=== PATIENT | male | born 1970 | race Hispanic/Latino ===

== ENCOUNTER → 2018-09-14 | Day surgery (SDC) | payer OTHER ==
[2018-09-13 09:53] LABS: BASOPHILS # (AUTO) 0.1 (0.0-0.1); BASOPHILS % 0.7 % (0.0-1.0); EOSINOPHILS # (AUTO) 0.2 (0.0-0.4); EOSINOPHILS % 2.2 % (0.0-6.0); HEMATOCRIT 42.5 % (38.2-49.6); HEMOGLOBIN 13.6 g/dL (14.0-18.0); LYMPHOCYTES # (AUTO) 2.3 (1.0-3.2); LYMPHOCYTES % 31.7 % (18.0-39.1); MEAN CORPUSCULAR HEMOGLOBIN 30.3 pg (28-32); MEAN CORPUSCULAR VOLUME 94.7 fL (81-99); MONOCYTES # (AUTO) 0.6 (0.2-0.8); MONOCYTES % 8.8 % (4.4-11.3); PLATELET COUNT 134 x10e3/uL (140-360); RED BLOOD COUNT 4.49 x10e6/uL (4.3-5.7); RED CELL DISTRIBUTION WIDTH 12.3 % (11.7-14.4)
[2018-09-13 10:04] LABS: INR 0.87; PROTHROMBIN TIME 12.7 seconds (11.9-14.5)
[2018-09-13 10:10] LABS: ALANINE AMINOTRANSFERASE 51 IU/L (0-55); ALBUMIN 3.8 g/dL (3.5-5.0); ALBUMIN/GLOBULIN RATIO 1.1 (0.8-2.0); ALKALINE PHOSPHATASE 75 IU/L (40-150); ANION GAP 13.3 mmol/L (8-16); BLOOD UREA NITROGEN 12 mg/dL (7-26); BUN/CREATININE RATIO 14 (6-25); CALCIUM 9.5 mg/dL (8.4-10.2); CARBON DIOXIDE 27 mmol/L (22-29); CHLORIDE 101 mmol/L (98-107); CREATININE, SERUM 0.84 mg/dL (0.72-1.25); EST GLOMERULAR FILTRATION RATE > 60 ML/MIN (60-); GLUCOSE 97 mg/dL (74-118); POTASSIUM 4.3 mmol/L (3.5-5.1); SODIUM 137 mmol/L (136-145)
[2018-09-14] VITALS (9 sets, daily range): BP systolic 117–173; BP diastolic 73–106
[~2018-09-14] VITALS: Ht 175.3 cm; Wt 90.7 kg
[~2018-09-14] MED LIST: ASPIR 8181 MG PO; FENTANYL CITRATE/PF 100MCG/2 ML INJ ONE; HEPARIN SOD/SOD CHLORIDE 2,000 ML ONE; IOPAMIDOL 370 MG/ML 200 ML INFUS..BTL INJ ONE; LIDOCAINE HCL 2% LOCAL 20 ML VIAL ONE; LISINOPRIL-HCT1 EACH PO; MIDAZOLAM HCL 2 MG/2 ML VIAL ONE; SODIUM CHLORIDE 0.9% 1000ML 1,000 ML ONE; VERAPAMIL HCL 2.5 MG/ML 2 ML VIAL ONE
--- OUTSIDE RECORDS SUMMARY | 2018-09-14 10:36 | XMS REPORT ---
Author Author [facility] Address Unknown Phone Unavailable Care Team Providers Care Pulp Operator Name Role Phone Unavailable Unavailable Payers Payer Name Policy Type Policy Number Effective Date Expiration Date Problems This patient has no known problems. Allergies, Adverse Reactions, Alerts Allergy Name Allergy Type Status Severity Reaction(s) Onset Date Inactive Date Treating Clinician Comments No Known Allergies DA Active U 2013-06-16 00:00:00 Medications This patient has no known medications.
--- NOTE | 2018-09-14 16:36 | Operative Report ---
DATE OF PROCEDURE: September 14, 2018 PROCEDURES PERFORMED 1. Conscious sedation, 26 minutes. 2. Selective coronary angiography times 2 via right radial approach. 3. Left heart catheterization. PREOPERATIVE DIAGNOSIS: Abnormal stress test. POSTOPERATIVE DIAGNOSIS: Nonobstructive coronary artery disease. ESTIMATED BLOOD LOSS: Less than 10 mL. SPECIMENS REMOVED: None. PROCEDURE DETAIL: After informed consent was obtained, the patient was brought to the cardiac catheterization laboratory in the fasting and nonsedated state. Bilateral groins and right wrist were prepped and draped in the usual sterile fashion. Two percent lidocaine was infiltrated over the right wrist for local anesthesia. Using micropuncture needle, the right radial artery was access via the modified Seldinger technique, and a 6-Tel[place] Thunder sheath was placed. Next, diagnostic coronary angiography and left heart catheterization was performed using a TIG catheter. Guide catheter was subsequently removed over the wire. Hemostasis was achieved via TR band. The patient tolerated the procedure well with no immediate complications. Transferred back to his room in stable condition. PROCEDURAL FINDINGS 1. Left main coronary artery is patent without significant coronary artery disease. 2. The left anterior descending coronary artery is patent proximally. The first diagonal branch has an ostial 30% stenosis. The mid-LAD itself has a 30% to 40% stenosis. The distal LAD also has a mild 30% stenosis. 3. Left circumflex coronary artery provides 3 obtuse marginal vessels, and there is mild luminal irregularities. 4. The right coronary artery is a dominant vessel and provides the posterior descending coronary artery. There is mild luminal irregularities present in this coronary system. 5. Left ventricular end-diastolic pressure was 12 mmHg with no aortic valve gradient upon pullback. IMPRESSION AND RECOMMENDATIONS: This is a 48-year-old man who presented with atypical chest pain as an outpatient, and was found to have an abnormal noninvasive stress test. Coronary angiography today revealed nonobstructive coronary artery disease. The patient will receive optimal medical therapy for his coronary artery disease. Job#: [id number] [place]
== END | disposition home or self-care (01) ==
LOC: CATH LAB 10:33
PROVIDERS: ATTEND Internal Medicine Cardiovascular Disease
DX: I25.10 Atherosclerotic heart disease of native coronary artery without angina pectoris (principal); R94.39 Abnormal result of other cardiovascular function study; R06.02 Shortness of breath; I10 Essential (primary) hypertension; I83.893 Varicose veins of bilateral lower extremities with other complications; Z79.82 Long term (current) use of aspirin
CPT/HCPCS: 36415; 80053; 85025; 85610; 93452; C1887; J2001; J2250; J7030; Q9967; 93458

== ENCOUNTER → 2022-05-18 | Emergency (ER) | payer OTHER ==
[~2022-05-18] VITALS: Ht 175.3 cm; Wt 90.7 kg
[~2022-05-18] MED LIST changes: +BENZONATATE200 MG PO; -FENTANYL CITRATE/PF 100MCG/2 ML INJ ONE; +FLONASE ALLERG9.9 ML INH; -HEPARIN SOD/SOD CHLORIDE 2,000 ML ONE; -IOPAMIDOL 370 MG/ML 200 ML INFUS..BTL INJ ONE; -LIDOCAINE HCL 2% LOCAL 20 ML VIAL ONE; -MIDAZOLAM HCL 2 MG/2 ML VIAL ONE; +PROAIR HFA INH8.5 GM PEG; -SODIUM CHLORIDE 0.9% 1000ML 1,000 ML ONE; -VERAPAMIL HCL 2.5 MG/ML 2 ML VIAL ONE
== END | disposition home or self-care (01) ==
LOC: ER 16:37
DX: R05.9 Cough, unspecified (principal); J06.9 Acute upper respiratory infection, unspecified; R07.89 Other chest pain; I45.10 Unspecified right bundle-branch block; R94.31 Abnormal electrocardiogram [ECG] [EKG]
CPT/HCPCS: 93005; 99282